=== PATIENT | female | born 1970 | race Caucasian/White ===

== ENCOUNTER → 2023-07-01 11:02 | Outpatient (REF) | payer BC, SELFPAY | LOC: WDC 11:02 | PROVIDERS: ATTENDING PHYSICIAN Obstetrics & Gynecology; FAMILY PHYSICIAN Family Medicine | DX: Z12.31 Encounter for screening mammogram for malignant neoplasm of breast (principal) | CPT/HCPCS: 77063; 77067 ==

== ENCOUNTER 2024-01-27 16:34 | Day surgery (SDC) | payer BC, SELFPAY ==
[2024-01-27 06:53] LABS: % Basophils 0.4 % (0-2); % Eosinophils 0.2 % (0-6); % Immature Granulocytes 0.3 % (0-0.5); % Lymphocytes 10.5 % (20.5-51.1); % Monocytes 3.7 % (1.7-9.3); % Neutrophils 84.9 % (42.2-75.2); Absolute Monocytes 0.3 10^3/uL (0.1-0.6); Absolute Neutrophils 7.8 10^3/uL (1.4-6.5); Hematocrit 38.2 % (37.0-47.0); Hemoglobin 14.1 g/dL (12.0-16.0); Mean Corp Hgb Conc. 36.9 g/dL (33.0-37.0); Mean Corpuscular Hgb 32.6 pg (27.0-31.0); Mean Corpuscular Volume 88.4 fL (81.0-99.0); Mean Platelet Volume 9.2 fL (7.4-10.4); Nucleated Red Blood Cells % 0 %; Platelet Count 264 10^3/uL (130-400); Red Blood Cell Count 4.32 10^6/uL (4.20-5.40); Red Cell Dist. Width 11.8 % (11.5-14.5); White Blood Cell Count 9.2 10^3/uL (4.8-10.8)
[2024-01-27 07:06] LABS: HCG, Serum Qualitative Screen Negative
[2024-01-27 07:08] LABS: ALT (SGPT) 17 U/L (0-35); AST (SGOT) 21 U/L (14-36); Albumin 4.4 g/dl (3.5-5.0); Alkaline Phosphatase 75 U/L (38-126); Blood Urea Nitrogen 11 mg/dl (7-17); Calcium 9.7 mg/dl (8.4-10.2); Carbon Dioxide 26 mmol/L (22-30); Chloride 107 mmol/L (98-107); Glucose 129 mg/dl (70-99); Lipase 152 U/L (23-300); Potassium 4.4 mmol/L (3.5-5.1); Sodium 142 mmol/L (135-145); Total Bilirubin 1.2 mg/dl (0.2-1.3); Total Protein 6.8 g/dl (6.3-8.2); eGFR > 60.00
--- NOTE | 2024-01-27 07:08 | ED.GENMED ---
History of Present Illness
General
Chief Complaint: Abdominal Symptoms
Source: patient and spouse
Exam Limitations: none
Time Seen by Provider: 01/27/24 06:43
History of Present Illness
History of Present Illness:
53-year-old female woke at 1 AM with general vague mid abdominal pain with radiation to the right mid back. Vomited 4 times. No fever. Discomfort did radiate to her chest somewhat initially but this resolved then. Mostly complaining of back pain
at this time. No urinary symptoms
Past History
Past History
ED Past Medical History: None
ED Past Surgical History: None
Social History
Tobacco: Non-smoker
Phy Exam
Physical Exam
Physical Exam:
GENERAL: Alert and oriented in no apparent distress
EYE: Orbits normal.
NECK: Supple
CARDIAC: Regular rate and rhythm without any obvious murmurs.
LUNGS: Clear breath sounds,normal
ABDOMEN: Soft, bowel sounds present. No distention. No rebound or guarding. No hernia or masses. Very minimal right upper quadrant tenderness.
NEUROLOGICAL: Alert and oriented , grossly non-focal
SKIN: Warm and dry, no rash or lesion, no discoloration, skin intact.
MUSCULOSKELETAL: No edema,no deformity.Good color
PSYCH: Normal and appropriate interaction.
Course
Orders/Labs/Results
Orders:
Orders
01/27/24 Breakfast
Clear Liquid
01/27/24 06:38
Test Result ONCE
01/27/24 06:41
Complete Blood Count/With Diff Urgent
Comprehensive Metabolic Panel Urgent
HCG, Serum Qualitative Screen Urgent
Lipase Urgent
Urinalysis Reflex To Culture Urgent
Date Specimen was Collected: 01/27/24
Time Specimen was Collected: 06:38
Urine Microscopic Reflex Cult Urgent
01/27/24 06:52
US Abdomen Complete/Upper Urgent
Reason For Exam: Vague mid abdominal pain radiation to the back
01/27/24 06:57
D-Dimer Urgent
Troponin I Urgent
01/27/24 12:01
Admit Patient As Directed
Co-Sign Provider:
Level of Care: Post Proc/Surg Recovery
Assign to:: Medical/Surgical
Physician / Group: Manjeet
Diagnosis: Biliary colic
Reason for Overnight Stay: Standard of Care
Code Status As Directed
Resuscitation Status: Full Code
Acetaminophen [Tylenol] 650 mg PO Q4HPRN PRN
HYDROmorphone [Dilaudid] 0.5 mg IV Q2HPRN PRN
HYDROmorphone [Dilaudid] 1 mg IV Q2HPRN PRN
Ibuprofen [Motrin] 400 mg PO Q6HPRN PRN
Ondansetron Injectable [Zofran] 4 mg IV Q6HPRN PRN
Activity As Directed
Activity Level: Out of Bed-Early Mobility
Anti-embolism (RASHEL) Hose As Directed
Type: Thigh high
Intake/ Output As Directed
Frequency: Per unit guidelines
Vital Signs As Directed
Frequency: Per unit guidelines
PRN Pain Medication Management As Directed
May give lesser potent ordered pain med per pt: Yes
preference::
Protocol:: Medication orders for pain may be administered in a
manner that supports deferring to patient preference
when the pt is:
- Requesting an ordered lesser potent pain medication.
Least to most potent pain medications are defined
as: acetaminophen < NSAID < tramadol < opioids
(morphine, oxycodone, hydromorphone).
- Requesting a lesser dose of the same medication IF
ORDERED.
- Requesting a less intrusive route of administration
if both routes are prescribed by the provider (PO <
IV).
01/27/24 12:02
Pneumatic Compression Sleeves As Directed
Type: Knee high
DX Deep Vein Thrombosis Video Routine
01/27/24 13:00
KCl 20 Meq/D5.45%Sodchl 1000ML [D5/0.45%NSS with KCL 20 MEQ] 20 meq in 1,000 ml IV 100 mls/hr
01/27/24 18:00
Enoxaparin Sodium [Lovenox] 40 mg SC QPM
01/28/24 Breakfast
NPO
Allow oral meds: No
Allow clear liquids: No
Abnormal Lab Results
01/27/24
06:41
MCH 32.6 H pg
(27.0-31.0)
Absolute Neuts (auto) 7.8 H 10^3/uL
(1.4-6.5)
Absolute Lymphs (auto) 1.0 L 10^3/uL
(1.2-3.4)
Neutrophils % 84.9 H %
(42.2-75.2)
Lymphocytes % 10.5 L %
(20.5-51.1)
Glucose 129 H mg/dl
(70-99)
Ur Occult Blood Reflex 3+ A
(Negative)
Urine RBC 26-30 A /HPF
(0-2)
01/27/24 06:41
01/27/24 06:41
Vital Signs
Initial and Last Documented VS:
Initial Vital Signs
Temp Pulse Resp BP Pulse Ox
98.4 F 72 18 159/64 96
01/27/24 05:31 01/27/24 05:31 01/27/24 05:31 01/27/24 05:31 01/27/24 05:31
Last Documented Vital Signs
Temp Pulse Resp BP Pulse Ox
98.4 F 72 18 159/64 96
01/27/24 05:31 01/27/24 05:31 01/27/24 05:31 01/27/24 05:31 01/27/24 05:31
MDM/Problems Addressed
Differential Diagnosis Includes:
Sudden onset bandlike abdominal pain radiation of the right back. Most suspicious of gallbladder given the history and physical findings. Because the discomfort radiated to the chest cardiac to be ruled out although very unlikely. Kidney stone
also in the differential. Workup in progress
*Critical Care Note
Total Time (30-74mins, 75-104mins- exclusive of procedures): Not Applicable
Data Reviewed
Review of Other/Old Records Reveals: Labs, Records and Testing
ED Attending Note
-
Portions of this chart may have been created with voice recognition software.� Occasional wrong word or��sound alike� substitutions may have occurred due to the inherent limitations of voice recognition software.
Discharge Plan
Departure
Patient Disposition: Admit
Date of Disposition: 01/27/24
Time of Disposition: 11:25
Presentation/result/management discussed w/ accepting MD/DO: Surgery
Discharge Problem:
Biliary colic, Impacted gallstone/neck of gallbladder
Prescriptions:
No Action
multivitamin 1 EACH tablet
1 ea PO DAILY
cholecalciferol (vitamin D3) [Vitamin D3] 25 mcg (1,000 unit) Tablet
75 mcg PO DAILY
simethicone [Gas-X] 80 mg Tablet,Chewable
80 mg PO BIDPRN PRN (Reason: gas)
sulfacetamide sodium-sulfur 10-5 % (w/w) cream
1 applic TOPICAL DAILY
Referrals:
Riley Heck DO [Family Provider] -
Interventions
Interventions:
*Risk Screen - Suicide Last Done: 01/27/24 06:39
*General Assessment Last Done: 01/27/24 05:31
*Neglect/Abuse Screening Last Done: 01/27/24 05:31
ED- Fall Risk Assessment Last Done: 01/27/24 05:31
*ED COVID-19 Vaccine History Last Done: 01/27/24 05:31
[facility] Assessment Last Done: 01/27/24 06:39
Discharge Date and Time
Print Language: ROMANIAN
[2024-01-27 07:32] LABS: Troponin I < 0.012 ng/ml
[2024-01-27 07:35] LABS: Urine Albumin Negative (Neg - Trace); Urine Bilirubin Negative (Negative); Urine Character Clear (Clear); Urine Color Yellow; Urine Glucose Negative (Negative); Urine Ketone Negative (Negative); Urine Leukocyte Negative (Negative); Urine Nitrite Negative (Negative); Urine Occult Blood 3+ (Negative); Urine Urobilinogen Negative (Neg - 1+)
[2024-01-27 08:15] LABS: D-Dimer < 0.27 ug/mlFEU (0.00-0.50)
[2024-01-27 08:24] LABS: Urine Mucus Many
[2024-01-27 08:25] LABS: Urine Red Blood Cell 26-30 /HPF (0-2); Urine White Cell 0-2 /HPF (0-5)
--- NOTE | 2024-01-27 11:44 | CON.GS ---
Consultation
-
Requesting Provider: Mk
Performing Provider: luke
Reason for Consultation: Biliary colic
Medical History
-
Chief Complaint: Abd pain
History of Present Illness:
53F with acute onset abd pain that began around 1AM last night and woke her from sleep. She ate cake and ice cream for dinner. The pain was severe, generalized to chest and abdomen and radiating to her back, 'almost like labor contractions.' A/w
n/v. Denies f/c. Denies changes to stool/urine. One prior episde 2 years ago was less severe, the gb was not investigated at that time it was thought to be nephrolithiasis.
Past Medical History
Past Medical History: Reviewed & Noncontributory
Past Surgical History: Reviewed & Noncontributory
Social History
Tobacco: Non-Smoker
Personal:
Living: With Family
Family History
Family History: Reviewed & Noncontributory
Allergies / Home Medications
Allergy/AdvReac Type Severity Reaction Status Date / Time
No Known Allergies Allergy Verified 01/27/24 05:30
�Medication �Instructions �Recorded �Confirmed �Type
Advar Green 1 applic topical DAILY 11/06/21 History
Vitamin D3: 1 tab PO DAILY 11/06/21 11/06/21 History
multivitamin 1 ea PO DAILY 11/06/21 11/06/21 History
Review of Systems
-
A 10 point review of systems was completed, and was negative except as per HPI.
Physical Exam
Vital Signs
Temp Pulse Resp BP Pulse Ox
98.4 F 72 18 159/64 96
01/27/24 05:31 01/27/24 05:31 01/27/24 05:31 01/27/24 05:31 01/27/24 05:31
Lab Results
01/27/24 06:41
01/27/24 06:41
WBC 9.2 10^3/uL (4.8-10.8) 01/27/24 06:41
Hgb 14.1 g/dL (12.0-16.0) 01/27/24 06:41
Hct 38.2 % (37.0-47.0) 01/27/24 06:41
Plt Count 264 10^3/uL (130-400) 01/27/24 06:41
Abs Immat Gran (auto) 0.0 10^3/uL (0-0.05) 01/27/24 06:41
Neutrophils % 84.9 % (42.2-75.2) H 01/27/24 06:41
Physical Exam
General: Well Developed, Well Nourished and No Apparent Distress
HEENT: Normocephalic and Anicteric
GI: Soft and Non Tender
Skin: Warm and Dry
Neuro: AO x 3
Psych: Calm
Data Reviewed
-
Ultrasound: Image Personally Visualized and interpreted, Report Reviewed by me, Discussed with Physician and Discussed with Patient
Labs: Labs Reviewed by me, Discussed with Physician and Discussed with Patient
Old Records: Reviewed
Assessment / Plan
-
53F with biliary colic
AFVSS, pain much improved
No leukocytosis, LFTs unremarkable
US with cholelithiasis, no stigmata of ACC
She is very concerned about recurrence of pain and prefers to stay and undergo CCY
Plan:
Admit to surgery
CLD now, NPO@[place]
Added to schedule tentatively for tomorrow for lap neno
PRN pain meds, antiemetics
DVT ppx
Ambulate
[2024-01-27] MEDS: D5/0.45%NSS with KCL 20 MEQ 1000 IV (16:54)
--- NOTE | 2024-01-27 17:00 | PTCARENOTE ---
Pt admitted from the ED into room 424, ambulated from stretcher to bed. AAOx3, pt denying pain and nausea at this time. Oriented pt to room and plan of care. Call ross within reach.
[2024-01-27] MEDS: LOVENOX 40 MG SC (17:40)
[2024-01-28] MEDS: D5/0.45%NSS with KCL 20 MEQ 1000 IV ×2 (03:56→15:55)
--- NOTE | 2024-01-28 08:57 | W.PN.GS2 ---
Today's Communication / Plan
-
`
Assessment / Plan
-
Assessment: 53-year-old female admitted with acute biliary colic versus acute calculus cholecystitis.
Reviewed with patient history and workup which is consistent with acute biliary colic/acute calculus cholecystitis. We discussed operative as well as nonoperative management options.
Patient would like to proceed with cholecystectomy.
Laparoscopic cholecystectomy with possible cholangiogram was reviewed in detail including operative technique utilizing diagrams and alternative management options. The potential benefits and risks of the procedure were reviewed in detail, including
but not limited to infectious or wound healing complications, bleeding, bile leak, injury to biliary tree, iatrogenic injury to surrounding viscera and post cholecystectomy syndrome. Reviewed the typical postoperative recovery.
Any of the patient's concerns or questions were fully addressed and informed consent was obtained.
Plan: Patient added onto the OR schedule today for lap neno
N.p.o.
IV fluids and supportive care pending OR time
Subjective Data
-
Date of Service: January 28, 2024
Patient seen and examined this a.m.
Presenting abdominal pain is resolved but still with epigastric discomfort after trialing clear liquids and crackers yesterday
Objective Data
-
Intake and Output
01/27/24 01/28/24 01/29/24
06:59 06:59 06:59
Intake Total 200 / 200
Balance 200 / 200
Intake:
IV fluids (Total) 200 / 200
Other:
Number of approximated MODERATE 2
amounts of urine
Vital Signs
Temp Pulse Resp BP Pulse Ox
97.9 F 64 21 101/69 97
01/28/24 07:35 01/28/24 07:35 01/28/24 07:35 01/28/24 07:35 01/28/24 07:35
Lab Results
01/27/24 06:41
01/27/24 06:41
Calcium 9.7 mg/dl (8.4-10.2) 01/27/24 06:41
Total Bilirubin 1.2 mg/dl (0.2-1.3) 01/27/24 06:41
AST 21 U/L (14-36) 01/27/24 06:41
ALT 17 U/L (0-35) 01/27/24 06:41
Alkaline Phosphatase 75 U/L (38-126) 01/27/24 06:41
Total Protein 6.8 g/dl (6.3-8.2) 01/27/24 06:41
Albumin 4.4 g/dl (3.5-5.0) 01/27/24 06:41
Physical Exam
-
NAD AAOx3
--- NOTE | 2024-01-28 13:13 | W.SUR.PREOP ---
Pre-Operative Surgical Note
-
I have examined this patient prior to the performance of the scheduled procedure.
The patient's condition is unchanged from the time of the current History and
Physical and the patient is able to undergo the scheduled procedure.
--- NOTE | 2024-01-28 14:34 | W.IMMPOSTOP ---
Addendum entered and electronically signed by Karthik Bojorquez MD 01/28/24 14:49:
#[id number]
Original Note:
Surgical Immed Post Op Note
-
Primary Surgeon: [place]
Assisting Surgeon: Lory PAYNE
Pre-op Diagnosis: Acute biliary colic, symptomatic cholelithiasis
Post-op Diagnosis: Acute biliary colic, symptomatic cholelithiasis
Procedure Performed: Laparoscopic cholecystectomy
Anesthesia Type: GETA +0.25% Marcaine with epi
Specimen / Cultures: Gallbladder
Estimated Blood Loss: 8 mL
Complications: None immediate
Operative Findings: Physiologically distended with pericholecystic edema. Critical view of safety identifying main cystic artery, posterior artery branch and cystic duct. Each individually controlled with hemoclips. Gallbladder removed intact and
extracted at epigastric port site.
Plan: Routine postoperative care, low-fat diet as tolerated, okay for discharge home when tolerating p.o. intake, ambulating and pain controlled.
updated post op via phone call
--- NOTE | 2024-01-28 15:15 | CM ---
Patient off the floor for Lap Alejandra.
[2024-01-28] MEDS: SUBLIMAZE 25 MCG IV ×2 (15:48→16:20)
--- NOTE | 2024-01-28 17:27 | SUR.PHASEI ---
patient in pacu post op lap neno, sleepy but arousable, pressure pain under diaphragm and into back from abdomen, vss - medicated x2 with fentanyl low dose because of somulence, - sleeps after medication. no nausea, vss, called and
updated. discharge to [address] [place] [address], awake but tired, oriented, pain controlled
[2024-01-28] MEDS: TORADOL 10 MG IV (17:33)
[2024-01-28] MEDS: LOVENOX 40 MG SC (18:13)
[2024-01-29] MEDS: D5/0.45%NSS with KCL 20 MEQ 1000 IV (00:01)
--- NOTE | 2024-01-29 08:07 | W.PN.GS2 ---
Today's Communication / Plan
-
dispo planning
Assessment / Plan
-
Assessment: 53-year-old female admitted with acute biliary colic versus acute calculus cholecystitis.
POD #1 Lap neno
AFVSS
Tolerating diet
--Continue LFD
--Analgesics as tolerated
--Dispo planning
Subjective Data
-
Date of Service: January 29, 2024
Patient seen and examined at bedside. Denies n/v. tolerating diet. Pain to RUQ post op but manageable.
Objective Data
-
Intake and Output
01/28/24 01/29/24 01/30/24
06:59 06:59 06:59
Intake Total 1400 / 1400 2130 / 2130
Balance 1400 / 1400 2130 / 2130
Intake:
Oral fluids 530 / 530
IV fluids (Total) 1400 / 1400 1600 / 1600
D5/0.45%NSS with KCL 20 MEQ 20 200 / 200
meq In 1,000 ml @ 100 mls/hr IV
.Q10H [facility] Rx#:[id number]
normosol 200 / 200
Other:
Number of approximated SMALL 3
amounts of urine
Number of approximated MODERATE 2
amounts of urine
Vital Signs
Temp Pulse Resp BP Pulse Ox
98.5 F 86 16 130/76 96
01/29/24 03:00 01/29/24 03:00 01/29/24 03:00 01/29/24 03:00 01/29/24 03:00
Lab Results
01/27/24 06:41
01/27/24 06:41
Calcium 9.7 mg/dl (8.4-10.2) 01/27/24 06:41
Total Bilirubin 1.2 mg/dl (0.2-1.3) 01/27/24 06:41
AST 21 U/L (14-36) 01/27/24 06:41
ALT 17 U/L (0-35) 01/27/24 06:41
Alkaline Phosphatase 75 U/L (38-126) 01/27/24 06:41
Total Protein 6.8 g/dl (6.3-8.2) 01/27/24 06:41
Albumin 4.4 g/dl (3.5-5.0) 01/27/24 06:41
Physical Exam
-
NAD AAOx3
ABD soft, ND, mild tenderness to RUQ
[2024-01-29] MEDS: TORADOL 10 MG IV (09:10)
[2024-01-29] MEDS: D5/0.45%NSS with KCL 20 MEQ IV (09:16)
--- NOTE | 2024-01-29 09:36 | W.DS.TRANS ---
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
-
Discharge Instructions:
Discharge Diagnosis/Procedures Acute biliary colic/symptomatic cholelithiasis.
Laparoscopic cholecystectomy
Diet As tolerated,Low Fat
Activity No strenuous activity
Additional Activity No lifting over 15 to 20 pounds for 3 weeks
postoperatively
Driving Restrictions No driving for 24 hours
Wound Care Glue at surgical sites typically peels off in 2
to 3 weeks
Instructions:
Stand-Alone Forms:
Changes to Home Medications: No
Discharge Medications:
DC Medications w/original date entered in [employer]
cholecalciferol (vitamin D3) 25 mcg (1,000 unit) tablet (Vitamin D3) 75 mcg PO DAILY 11/06/21
multivitamin 1 ea PO DAILY 11/06/21
simethicone 80 mg chewable tablet 80 mg PO BIDPRN PRN gas 01/27/24
sulfacetamide sodium-sulfur 10 %-5 % (w/w) topical cream 1 applic topical DAILY face 01/27/24
acetaminophen 500 mg tablet (Tylenol Extra Strength) 1,000 mg (2 x 500 mg) PO Q6HPRN PRN mild pain #1 tab 01/28/24
ibuprofen 200 mg tablet 400 - 600 mg (2 - 3 x 200 mg) PO Q6HPRN PRN moderate pain #1 tab 01/28/24
polyethylene glycol 3350 17 gram/dose oral powder (Miralax) 4 g PO DAILY PRN Constipation #119 grams 01/28/24
tramadol 50 mg tablet 25 - 50 mg (0.5 - 1 x 50 mg) PO Q6HPRN PRN severe pain/breakthrough pain #10 tabs 01/29/24
Home Medication Changes
Pending Results: No
--- NOTE | 2024-01-29 10:19 | CM ---
CM following re: discharge planning.
Reviewed pt's chart, met with pt.
Pt is a 53 year old female, admitted with primary dx of POD #1 May lazcano
Pt reports she lives with , mother and youngest daughter in a 2SH, 3 steps to enter, has 3 supportive children. Pt described herself as independent in all areas PTAS, drives, works.
Discharge order noted. Pt is aware and she stated her is coming to transport her home.
D/C plan: home no needs. to transport.
== END 2024-01-29 10:21 | disposition home or self-care (01) ==
LOC: SDS 16:34
PROVIDERS: ATTENDING PHYSICIAN Surgery; EMERGENCY PHYSICIAN Emergency Medicine; FAMILY PHYSICIAN Family Medicine
DX: K80.10 Calculus of gallbladder with chronic cholecystitis without obstruction (principal)
CPT/HCPCS: 47562; 88304; 76700; 80053; 81003; 81015; 83690; 84484; 84703; 85025; 85379; 99285

== ENCOUNTER → 2024-04-13 10:01 | Outpatient (REF) | payer BC, SELFPAY | LOC: WDC 10:01 | PROVIDERS: ATTENDING PHYSICIAN Nurse Practitioner Family | DX: M79.89 Other specified soft tissue disorders (principal); N63.32 Unspecified lump in axillary tail of the left breast | CPT/HCPCS: 76642; 77061; 77065 ==

== ENCOUNTER → 2024-07-05 08:42 | Outpatient (REF) | payer BC, SELFPAY | LOC: WDC 08:42 | PROVIDERS: ATTENDING PHYSICIAN Nurse Practitioner Family | DX: Z12.31 Encounter for screening mammogram for malignant neoplasm of breast (principal) | CPT/HCPCS: 77063; 77067 ==

== ENCOUNTER → 2024-07-12 14:23 | Outpatient (REF) | payer BC, SELFPAY | LOC: DHSLP 14:23 | PROVIDERS: ATTENDING PHYSICIAN Internal Medicine Critical Care Medicine; FAMILY PHYSICIAN Family Medicine | DX: G47.30 Sleep apnea, unspecified (principal); R06.83 Snoring | CPT/HCPCS: 95800 ==

== ENCOUNTER → 2025-02-10 16:32 | Outpatient (REF) | payer BC, SELFPAY | LOC: RAD 16:32 | PROVIDERS: ATTENDING PHYSICIAN Family Medicine | DX: R10.10 Upper abdominal pain, unspecified (principal); R11.2 Nausea with vomiting, unspecified; R19.7 Diarrhea, unspecified | CPT/HCPCS: 74177; Q9967 ==

== ENCOUNTER 2025-02-12 19:20 | Emergency (ER) | payer BC, SELFPAY ==
[2025-02-12 19:23] VITALS: BP 145/89
[2025-02-12 22:35] VITALS: BP 115/73
[2025-02-12] MEDS: NSS 500 IV (22:42)
[2025-02-12] MEDS: ADRENALIN 0.3 MG IM (22:42)
[2025-02-12] MEDS: DECADRON 10 MG IV (22:45)
[2025-02-12] MEDS: PEPCID 20 MG IV (22:46)
[2025-02-12] MEDS: BENADRYL 50 MG IV (22:47)
[2025-02-12 23:20] VITALS: BMI 28.5
[2025-02-12] MEDS: ATARAX 50 MG PO (23:48)
--- NOTE | 2025-02-13 00:01 | ED.GENMED ---
History of Present Illness
General
Chief Complaint: Allergic Reaction
Source: patient
Exam Limitations: none
Time Seen by Provider: 02/12/25 22:03
Nursing documentation reviewed up to this point in time: agreed with
History of Present Illness
History of Present Illness:
The patient is a 54-year-old female who experienced a rash following a computed tomography (CT) scan with intravenous contrast. This was conducted due to a history of intermittent upper abdominal pain leading to nausea and vomiting, with a family
history of colon cancer influencing the decision for imaging. The patient reported an episode of pain and vomiting that occurred previously several years ago and recurred recently, prompting her family doctor to order the scan to rule out any
serious pathology.
The patient noted waking up with an itch and diffuse rash, describing it as �lobsterish� in appearance after the CT procedure undertaken Thursday, 2 days ago. The rash began later that night. She remarked, �Itches and aiken� and noted no new
products at home or changes in medications besides having finished a course of Macrobid on , 3 days ago, for a urinary tract infection. This reaction occurred despite having had prior CT scans with no adverse reactions, although those were
without contrast.
On Thursday morning post-scan, the patient self-administered Diphenhydramine (Benadryl) at her husbands suggestion, followed by initiation of Cetirizine (Zyrtec) and Famotidine (Pepcid), as recommended by her family doctor who prescribed a course of
Prednisone beginning that day, which remains ongoing. She took 50 mg of prednisone yesterday as well as today and has 1 more dose scheduled for tomorrow. Despite these interventions, symptoms remained quite pronounced.
The patient did not report respiratory symptoms, such as cough or dyspnea, no sore throat, no abdominal pain, no nausea or vomiting, no diarrhea. She otherwise remains able to eat and drink adequately. She proactively sought medical advice on
whether an intravenous antihistamine and corticosteroid might be warranted.
She states she has taken Macrobid several times in the past without adverse events.
She also admits that she had 1 similar rash a number years ago when she was being treated for pneumonia, at that time was hospitalized and had been on several different initially oral antibiotics and then IV antibiotics. Exact cause was never
determined.
Past History
Past History
ED Past Medical History: Other (History of pneumonia in the past; occasional UTI)
ED Past Surgical History: Cholecystectomy (January 2024)
Social History
Tobacco: Non-smoker
Alcohol: None
Personal:
Living: with family
Employment: Employed
Family History
Family History: Cancer (Colon cancer in family)
Phy Exam
Physical Exam
Physical Exam:
GENERAL: Alert , in no apparent distress
EYE: pupils equal and reactive. anicteric
NECK: Supple, nontender, no meningismus, no significant adenopathy.
ENT: posterior pharynx is clear, oral mucosa is moist. TM clear b/l, nares patent.
CARDIAC: Regular rate and rhythm. no murmur.
LUNGS: Clear breath sounds bilaterally, no acute respiratory distress, no wheezes/rales/rhonchi
ABDOMEN: Soft, nondistended, without focal tenderness, no r/g, no cvat. normoactive BS.
NEUROLOGICAL: Alert and oriented x3, no focal neuro deficits. Gait is chambers and steady.
SKIN: Warm and dry, normal color, skin intact. There is a diffuse/confluent erythematous rash over the anterior trunk, bilateral axilla, mildly to the upper back as well as bilateral groin and medial proximal upper thighs. There is no urticaria.
No palpable heat.
MUSCULOSKELETAL: No C/C/E. peripheral pulses are full and equal b/l. No palpable tenderness.
PSYCH: Normal and appropriate interaction.
Course
Orders/Labs/Results
Orders:
Orders
02/12/25 22:29
0.9% Sodium Chloride 500 ml [Nss] 500 ml IV BOLUS
Dexamethasone Sod Phosphate [Decadron] 10 mg IV NOW STA
Diphenhydramine [Benadryl] 50 mg IV NOW STA
EPINEPHrine PF [Adrenalin] 0.3 mg IM NOW STA
Famotidine [Pepcid] 20 mg IV NOW STA
02/12/25 23:41
HydrOXYZINE [Atarax] 50 mg PO NOW STA
02/13/25 00:05
Hydrocortisone [Hydrocortisone 2.5% Lotion] See Dose Instructions TOPICAL NOW STA
Vital Signs
Initial and Last Documented VS:
Initial Vital Signs
Temp Pulse Resp BP Pulse Ox
98.4 F 96 16 145/89 99
02/12/25 19:23 02/12/25 19:23 02/12/25 19:23 02/12/25 19:23 02/12/25 19:23
Last Documented Vital Signs
Temp Pulse Resp BP Pulse Ox
97.8 F 81 16 116/72 98
02/13/25 02:02 02/13/25 02:02 02/13/25 02:02 02/13/25 02:02 02/13/25 02:02
MDM/Problems Addressed
Differential Diagnosis Includes:
The Differential Diagnosis includes, in no particular order and is not limited to:
1. Allergic reaction to intravenous contrast dye.
2. Drug eruption possibly related to recent antibiotic exposure.
3. Cutaneous manifestation of systemic allergy.
4. New onset allergy to previously tolerated medications or substances.
5. Contact dermatitis from other unknown agents.
6. Vasculitis presenting as erythematous rash.
7. Urticaria due to idiopathic reasons.
8. Erythema multiforme.
9. Viral exanthem.
10. Autoimmune skin reaction.
MDM/Problems Addressed:
Acute Problems:
- Rash and itching following administration of intravenous contrast for CT scan.
- Suspected drug eruption versus IV contrast allergy.
Plan:
1. Initiate intravenous administration of Diphenhydramine and Dexamethasone and IV Pepcid for symptomatic relief. Will trial an IM dose of epinephrine as well.
2. Continue oral Prednisone as previously prescribed by the family doctor.
3. Monitor for any progression of symptoms or development of systemic involvement.
4. Recommend avoidance of shellfish and further exposure to intravenous contrast unless necessary. Recommend avoidance of Macrobid as this may be causative agent as well.
5. Re-evaluation with the patients family physician to occur as planned for subsequent follow-up.
6. Await and review CT scan results for any additional underlying pathology.
*Pulse Oximetry
SaO2: 97
Oxygen Mode of Delivery: Room air
Patient hypoxic: no
*Critical Care Note
Total Time (30-74mins, 75-104mins- exclusive of procedures): Not Applicable
Update Note
Update Note:
Patient reports no improvement in itch/rash thus far.
Will give an oral dose of Atarax and will trial topical hydrocortisone.
Overall remains well in appearance. No evidence of systemic inflammatory/infectious process.
02:15
Patient resting comfortably.
Moderate improvement in rash and upon recheck marked improvement in erythematous rash to anterior abdomen, upper chest.
Will discharge to home with recommendation to continue Pepcid 20 mg twice daily. Continue Xyzal in the a.m., Veronica in the evening.
She has an additional dose of prednisone 50 mg to take today. Will continue steroid taper beginning tomorrow, February 14.
I have also prescribed Atarax to take as needed for itch and she can continue hydrocortisone lotion twice daily to rash.
Prompt follow-up with PCP for recheck.
We did discuss that at this point it is unclear if allergic reaction is related to IV contrast versus Macrobid. Could consider outpatient testing with tool planner.
ED Attending Note
-
Portions of this chart may have been created with voice recognition software.� Occasional wrong word or��sound alike� substitutions may have occurred due to the inherent limitations of voice recognition software.
Discharge Plan
Departure
Patient Disposition: Home (Routine Discharge)
Date of Disposition: 02/13/25
Time of Disposition: 02:11
Patient with high blood pressure during this ER visit?: No
Condition: Good
Discharge Problem:
Acute allergic reaction
Instructions: Adverse Drug Reactions, Adult (DC)
Prescriptions:
New
prednisone 10 mg Tablet
See Rx Instructions .ROUTE .COMPLEX Qty: 30 0RF
Rx Instructions:
Take By Mouth:
40 mg daily x3 days, 30 mg daily x3 days,
20 mg daily x3 days, 10 mg daily x3 days.
hydroxyzine HCl 50 mg tablet
50 mg PO Q6H PRN (Reason: itching) Qty: 20 0RF
No Action
multivitamin 1 EACH tablet
1 ea PO DAILY
cholecalciferol (vitamin D3) [Vitamin D3] 25 mcg (1,000 unit) Tablet
75 mcg PO DAILY
simethicone 80 mg Tablet,Chewable
80 mg PO BIDPRN PRN (Reason: gas)
sulfacetamide sodium-sulfur 10-5 % (w/w) cream
1 applic TOPICAL DAILY
acetaminophen [Tylenol Extra Strength] 500 mg tablet
1,000 mg PO Q6HPRN PRN (Reason: mild pain) Qty: 1 0RF
ibuprofen 200 mg tablet
400 - 600 mg PO Q6HPRN PRN (Reason: moderate pain) Qty: 1 0RF
polyethylene glycol 3350 [Miralax] 17 gram/dose powder
4 g PO DAILY PRN (Reason: Constipation) Qty: 119 0RF
Rx Instructions:
start a laxative such as MIRALAX on day 2 after surgery if no bowel movement yet as long as no nausea/vomiting and passing gas
tramadol 50 mg tablet
25 - 50 mg PO Q6HPRN PRN (Reason: severe pain/breakthrough pain) Qty: 10 0RF
Referrals:
Riley Heck DO [Family Provider, Family Practice] - Call in 1-3 days for appt
Activity Restrictions/Additional Instructions:
Continue Pepcid 20 mg twice daily
Continue Xyzal in the a.m., Veronica in the evening
Continue prednisone 50 mg today. You will start an additional prednisone tapering dose tomorrow, February 14.
You have been given hydrocortisone lotion to apply to rash twice daily as needed.
You have also been prescribed Atarax to take 4 times daily as needed for itch.
Interventions
Interventions:
*General Assessment Last Done: 02/12/25 22:49
*Neglect/Abuse Screening Last Done: 02/12/25 19:23
*ED- Fall Risk Assessment Last Done: 02/12/25 19:23
*ED COVID-19 Vaccine History Last Done: 02/12/25 22:49
ED- Cardiac Assessment Last Done: 02/12/25 22:49
ED- Pulmonary Assessment Last Done: 02/12/25 22:49
ED-Skin Assessment Last Done: 02/12/25 22:49
Discharge Date and Time
Print Language: [id number]
[2025-02-13] MEDS: HYDROCORTISONE 2.5% LOTION 1 APPLIC TOPICAL (00:17)
[2025-02-13 02:02] VITALS: BP 116/72
== END 2025-02-13 02:27 | disposition home or self-care (01) ==
LOC: EMR 19:20
PROVIDERS: EMERGENCY PHYSICIAN Emergency Medicine; FAMILY PHYSICIAN Family Medicine
DX: L25.8 Unspecified contact dermatitis due to other agents (principal); T50.8X5A Adverse effect of diagnostic agents, initial encounter; Z90.49 Acquired absence of other specified parts of digestive tract; Z80.0 Family history of malignant neoplasm of digestive organs
CPT/HCPCS: 96374; 96375; 96372; 99284

== ENCOUNTER → 2025-04-21 09:34 | Outpatient (REF) | payer BC, SELFPAY ==
[2025-04-21 10:33] LABS: Urine Character Clear (Clear)
[2025-04-21 10:34] LABS: Hematocrit 40.7 % (37.0-47.0); Hemoglobin 13.8 g/dL (12.0-16.0); Mean Corp Hgb Conc. 33.9 g/dL (33.0-37.0); Mean Corpuscular Volume 92.1 fL (81.0-99.0); Nucleated Red Blood Cells % 0 %; Platelet Count 273 10^3/uL (130-400); Red Cell Dist. Width 12.2 % (11.5-14.5)
[2025-04-21 10:59] LABS: ALT (SGPT) 23 U/L (0-35); AST (SGOT) 23 U/L (14-36); Albumin 4.3 g/dl (3.5-5.0); Alkaline Phosphatase 63 U/L (38-126); Blood Urea Nitrogen 11 mg/dl (7-17); Calcium 9.2 mg/dl (8.4-10.2); Carbon Dioxide 28 mmol/L (22-30); Chloride 103 mmol/L (98-107); Glucose 88 mg/dl (70-99); HDL Cholesterol 58 mg/dl; LDL Cholesterol, Calculated 100 mg/dl; Potassium 4.3 mmol/L (3.5-5.1); Sodium 135 mmol/L (135-145); Total Protein 7.0 g/dl (6.3-8.2); Very Low Density Lipoprotein 18 mg/dl (0-30); eGFR > 60.00
[2025-04-21 11:14] LABS: Vitamin D, 25-OH*** 68.4 ng/mL (30-80)
[2025-04-21 11:16] LABS: Glycohemoglobin (HgbA1c) 5.1 % (4.0-5.9)
[2025-04-21 11:27] LABS: TSH 2.20 uIU/ml (0.47-4.68)
== END ==
LOC: REG 09:34
PROVIDERS: ATTENDING PHYSICIAN Family Medicine
DX: Z00.00 Encounter for general adult medical examination without abnormal findings (principal); E55.9 Vitamin D deficiency, unspecified; E66.9 Obesity, unspecified
CPT/HCPCS: 80053; 80061; 81003; 82306; 83036; 84443; 85025